=== PATIENT | female | born 1950 | race Caucasian/White ===

== ENCOUNTER 2019-01-02 12:15 | Emergency (ER) | payer OTHER ==
[~2019-01-02] VITALS: Ht 157.5 cm; Wt 70.3 kg
[~2019-01-02 12:15] MED LIST: HYDR-1421
[2019-01-02 13:07] LABS: Basophils # (auto) 0.1 uL; Basophils % (auto) 1.3 % (0.0-2.0); Eosinophils # (auto) 0.5 uL; Hematocrit 35.3 % (36.0-46.0); Hemoglobin 11.8 g/dL (12.2-16.2); Lymphocytes # (auto) 1.9 uL; Lymphocytes % (auto) 25.1 % (10.0-50.0); Mean Corpuscular Hemoglobin 27.4 pg (28.0-32.0); Mean Corpuscular Hgb Conc. 33.4 g/dL (32.0-36.0); Mean Corpuscular Volume 81.9 fL (80.0-100.0); Monocytes # (auto) 0.5 uL; Monocytes % (auto) 6.5 % (0.0-12.0); Neutrophils # (auto) 4.6 uL; Neutrophils % (auto) 60.1 % (37.0-80.0); Nucleated Red Blood Cells % 0.1 %; Platelet Count (auto) 279 10^3/uL (140-450); Red Blood Cells 4.31 10^6/uL (4.0-5.20); Red Cell Distribution Width 14.8 % (11.8-14.3); White Blood Cell 7.7 10^3/uL (4.4-10.8)
[2019-01-02 13:24] LABS: Albumin 3.4 g/dL (3.4-5.0); Calcium 8.7 mg/dL (8.5-10.1); Potassium 4.4 mmol/L (3.5-5.1)
[2019-01-02 13:27] LABS: BUN/Creatinine Ratio 41.5; Bilirubin, Total 0.2 mg/dL (0.2-1.0); Total Protein 7.2 g/dL (6.4-8.2)
[2019-01-02 13:36] LABS: INR 0.95 (0.9-1.15); Partial Thromboplastin Time 23.7 sec (23.64-32.05)
[2019-01-02] MEDS ORDERED: IOHEXOL 350 MG/ML 100ML IJ ONE (13:43)
[2019-01-02 14:25] LABS: Urine Bacteria FEW /hpf (None Seen); Urine Blood Negative /uL (Negative); Urine Mucus FEW (None Seen); Urine Specific Gravity 1.017 (1.001-1.035); Urine WBC 20 /hpf (0 - 5)
[2019-01-02] MEDS ORDERED: cefTRIAXone 1GM/50ML D5W 50 ML IV ONE (18:45)
[2019-01-02 20:45] VITALS: BP 112/73
== END 2019-01-02 20:51 | disposition home or self-care (01) ==
LOC: ER 12:19
DX: R07.89 Other chest pain (principal); R06.02 Shortness of breath; N39.0 Urinary tract infection, site not specified; N28.9 Disorder of kidney and ureter, unspecified; K72.90 Hepatic failure, unspecified without coma; R79.1 Abnormal coagulation profile; E78.5 Hyperlipidemia, unspecified; I10 Essential (primary) hypertension
CPT/HCPCS: 36415; 71045; 71275; 80053; 81001; 84443; 84484; 85025; 85379; 85610; 85730; 93005; 96365; 99284; J0696; Q9967

== ENCOUNTER 2019-04-04 14:13 | Emergency (ER) | payer OTHER ==
[~2019-04-04] VITALS: Ht 157.5 cm; Wt 70.3 kg
[2019-04-04 14:33] VITALS: BP 115/67
[2019-04-04 15:18] LABS: Basophils # (auto) 0 uL; Eosinophils # (auto) 0.4 uL; Lymphocytes % (auto) 22.9 % (10.0-50.0); Monocytes # (auto) 0.5 uL
[2019-04-04 15:20] LABS: Basophils % (auto) 0.5 % (0.0-2.0); Eosinophils % (auto) 5.3 % (0.0-7.0); Hematocrit 36.5 % (36.0-46.0); Hemoglobin 11.7 g/dL (12.2-16.2); Lymphocytes # (auto) 1.7 uL; Mean Corpuscular Hemoglobin 25.5 pg (28.0-32.0); Mean Corpuscular Hgb Conc. 32.1 g/dL (32.0-36.0); Mean Corpuscular Volume 79.7 fL (80.0-100.0); Monocytes % (auto) 7.3 % (0.0-12.0); Neutrophils # (auto) 4.7 uL; Nucleated Red Blood Cells % 0.1 %; Platelet Count (auto) 388 10^3/uL (140-450); Red Blood Cells 4.59 10^6/uL (4.0-5.20); Red Cell Distribution Width 16.5 % (11.8-14.3); White Blood Cell 7.3 10^3/uL (4.4-10.8)
[2019-04-04 15:27] LABS: Alanine Aminotransferase 169 U/L (13-56); Albumin 3.5 g/dL (3.4-5.0); Anion Gap 6 (5-15); Aspartate Aminotransferase 100 U/L (15-37); BUN/Creatinine Ratio 33.9; Blood Urea Nitrogen 21 mg/dL (7-18); Calcium 9.1 mg/dL (8.5-10.1); Carbon Dioxide 25 mmol/L (21-32); Chloride 106 mmol/L (98-107); GFR African American 123 mL/min; GFR Non-African American 102 mL/min; Glucose 93 mg/dL (74-106); Potassium 4.2 mmol/L (3.5-5.1); Sodium 137 mmol/L (136-145)
[2019-04-04 15:31] LABS: Alkaline Phosphatase 895 U/L (45-117); Bilirubin, Total 0.2 mg/dL (0.2-1.0); Total Protein 7.7 g/dL (6.4-8.2)
== END 2019-04-04 15:56 | disposition home or self-care (01) ==
LOC: ER 14:13 → EDBD 14:13 → ER 15:56
DX: R07.9 Chest pain, unspecified (principal); R06.02 Shortness of breath; Z53.21 Procedure and treatment not carried out due to patient leaving prior to being seen by health care provider
CPT/HCPCS: 36415; 71046; 80053; 84484; 85025; 93005

== ENCOUNTER → 2019-06-28 | Emergency (ER) | payer OTHER ==
[~2019-06-28] VITALS: Ht 157.5 cm; Wt 77.1 kg
[~2019-06-28] MED LIST changes: +IOHEXOL 350 MG/ML 100ML IJ ONE; +MORPHINE SULF INJ 2 MG/ML SYRINGE 1ML IV ONE; +ONDANSETRON HCL 4 MG/2 ML VIAL IV ONE; +cefTRIAXone 1GM/50ML D5W 50 ML IV ONE
[2019-06-28 15:25] LABS: Basophils # (auto) 0.1 10 ^3/uL (0-0.2); Basophils % (auto) 0.7 % (0.0-2.0); Eosinophils # (auto) 0.7 10 ^3/uL (0-0.8); Hemoglobin 12.7 g/dL (12.2-16.2); Monocytes # (auto) 0.8 10 ^3/uL (0-1.3)
[2019-06-28 15:37] LABS: Eosinophils % (auto) 5.3 % (0.0-7.0); Hematocrit 39.3 % (36.0-46.0); Lymphocytes # (auto) 2.7 10 ^3/uL (0.4-5.4); Lymphocytes % (auto) 20.5 % (10.0-50.0); Mean Corpuscular Hemoglobin 26.5 pg (28.0-32.0); Mean Corpuscular Hgb Conc. 32.3 g/dL (32.0-36.0); Mean Corpuscular Volume 82.1 fL (80.0-100.0); Monocytes % (auto) 6.4 % (0.0-12.0); Neutrophils # (auto) 8.7 10 ^3/uL (1.6-8.6); Neutrophils % (auto) 67.1 % (37.0-80.0); Nucleated Red Blood Cells % 0.1 %; Platelet Count (auto) 261 10^3/uL (140-450); Red Blood Cells 4.78 10^6/uL (4.0-5.20); Red Cell Distribution Width 18.3 % (11.8-14.3); White Blood Cell 12.9 10^3/uL (4.4-10.8)
[2019-06-28 15:45] LABS: Alanine Aminotransferase 123 U/L (13-56); Albumin 3.2 g/dL (3.4-5.0); Anion Gap 7 (5-15); Aspartate Aminotransferase 75 U/L (15-37); BUN/Creatinine Ratio 37.5; Blood Urea Nitrogen 24 mg/dL (7-18); Calcium 8.6 mg/dL (8.5-10.1); Carbon Dioxide 26 mmol/L (21-32); Chloride 104 mmol/L (98-107); GFR African American 119 mL/min; GFR Non-African American 98 mL/min; Glucose 96 mg/dL (74-106); Potassium 3.8 mmol/L (3.5-5.1); Sodium 137 mmol/L (136-145)
[2019-06-28 15:50] LABS: Alkaline Phosphatase 375 U/L (45-117); Bilirubin, Total 0.2 mg/dL (0.2-1.0); Total Protein 6.7 g/dL (6.4-8.2)
[2019-06-28 17:19] LABS: INR 0.93 (0.9-1.15); Partial Thromboplastin Time 23.5 sec (23.64-32.05)
[2019-06-28 20:03] LABS: Urine Bacteria FEW /hpf (None Seen); Urine Blood Negative /uL (Negative); Urine Mucus FEW (None Seen); Urine WBC 81 /hpf (0 - 5)
[2019-06-28 22:30] VITALS: BP 128/79
== END | disposition home or self-care (01) ==
LOC: EDUNIT# 14:24 → EDBD 14:39 → ER 14:39
DX: R07.2 Precordial pain (principal); N39.0 Urinary tract infection, site not specified; J18.9 Pneumonia, unspecified organism; R79.89 Other specified abnormal findings of blood chemistry; R79.1 Abnormal coagulation profile; I10 Essential (primary) hypertension; E78.5 Hyperlipidemia, unspecified; Z79.899 Other long term (current) drug therapy
CPT/HCPCS: 36415; 71046; 71275; 80053; 81001; 83735; 83880; 84443; 84484; 85025; 85379; 85610; 85730; 93005; 96365; 96375; 99285; J0696; J2270; J2405; Q9967

== ENCOUNTER 2019-09-01 00:18 | Emergency (ER) | payer OTHER ==
[~2019-09-01] VITALS: Ht 167.6 cm; Wt 72.6 kg
[~2019-09-01 00:18] MED LIST changes: -IOHEXOL 350 MG/ML 100ML IJ ONE; -MORPHINE SULF INJ 2 MG/ML SYRINGE 1ML IV ONE; -ONDANSETRON HCL 4 MG/2 ML VIAL IV ONE; -cefTRIAXone 1GM/50ML D5W 50 ML IV ONE
[2019-09-01 02:01] LABS: Basophils # (auto) 0.1 10 ^3/uL (0-0.2); Basophils % (auto) 0.7 % (0.0-2.0); Eosinophils # (auto) 0 10 ^3/uL (0-0.8); Eosinophils % (auto) 0.1 % (0.0-7.0); Hemoglobin 14.3 g/dL (12.2-16.2); Lymphocytes # (auto) 1.7 10 ^3/uL (0.4-5.4); Lymphocytes % (auto) 20.8 % (10.0-50.0); Mean Corpuscular Hemoglobin 28.3 pg (28.0-32.0); Mean Corpuscular Hgb Conc. 33.2 g/dL (32.0-36.0); Mean Corpuscular Volume 85.1 fL (80.0-100.0); Monocytes # (auto) 0.5 10 ^3/uL (0-1.3); Monocytes % (auto) 5.7 % (0.0-12.0); Neutrophils # (auto) 5.9 10 ^3/uL (1.6-8.6); Neutrophils % (auto) 72.7 % (37.0-80.0); Nucleated Red Blood Cells % 0.1 %; Platelet Count (auto) 342 10^3/uL (140-450); Red Blood Cells 5.05 10^6/uL (4.0-5.20); Red Cell Distribution Width 16.3 % (11.8-14.3); White Blood Cell 8.1 10^3/uL (4.4-10.8)
[2019-09-01 02:16] LABS: INR 0.95 (0.9-1.15); Partial Thromboplastin Time 25.5 sec (23.64-32.05)
[2019-09-01 02:18] LABS: Alanine Aminotransferase 107 U/L (13-56); Albumin 3.8 g/dL (3.4-5.0); Anion Gap 7 (5-15); Aspartate Aminotransferase 66 U/L (15-37); BUN/Creatinine Ratio 28.4; Blood Urea Nitrogen 21 mg/dL (7-18); Calcium 9.4 mg/dL (8.5-10.1); Carbon Dioxide 24 mmol/L (21-32); Chloride 108 mmol/L (98-107); GFR African American 100 mL/min; GFR Non-African American 83 mL/min; Glucose 117 mg/dL (74-106); Magnesium 2.3 mg/dL (1.6-2.6); Potassium 4.3 mmol/L (3.5-5.1); Sodium 139 mmol/L (136-145)
[2019-09-01 02:25] LABS: Alkaline Phosphatase 471 U/L (45-117); Bilirubin, Total 0.2 mg/dL (0.2-1.0); Total Protein 7.9 g/dL (6.4-8.2)
[2019-09-01] MEDS ORDERED: ONDANSETRON HCL 4 MG/2 ML VIAL IV ONE (08:15)
[2019-09-01] MEDS ORDERED: MORPHINE SULFATE 4 MG/ML SYR/VIAL IV ONE (08:15)
[2019-09-01] MEDS ORDERED: ASPirin 81 mg TAB PO ONE (08:15)
[2019-09-01 10:00] VITALS: BP 114/57
== END 2019-09-01 11:30 | disposition home or self-care (01) ==
LOC: EDUNIT# 00:18 → EDBD 00:18 → ER 00:18
DX: R07.89 Other chest pain (principal); E78.5 Hyperlipidemia, unspecified; I10 Essential (primary) hypertension; Z90.710 Acquired absence of both cervix and uterus
CPT/HCPCS: 36415; 71045; 80053; 83735; 83880; 84443; 84484; 85025; 85610; 85730; 93005; 96374; 96375; 99285; J2270; J2405

== ENCOUNTER 2020-09-29 12:10 | Emergency (ER) | payer OTHER ==
[~2020-09-29] VITALS: Ht 157.5 cm; Wt 63.5 kg
[2020-09-29 13:41] VITALS: BP 138/77
[2020-09-29] MEDS ORDERED: cefTRIAXone SOD 1,000 MG VL IM ONE (15:15)
== END 2020-09-29 17:14 | disposition home or self-care (01) ==
LOC: ER 12:10
DX: U07.1 COVID-19 (principal); J20.8 Acute bronchitis due to other specified organisms; I10 Essential (primary) hypertension; K21.9 Gastro-esophageal reflux disease without esophagitis; E78.5 Hyperlipidemia, unspecified; Z90.49 Acquired absence of other specified parts of digestive tract; Z90.710 Acquired absence of both cervix and uterus; Z90.89 Acquired absence of other organs
CPT/HCPCS: 36415; 71045; 87426; 96372; 99284; J0696

== ENCOUNTER 2020-10-04 11:22 | Emergency (ER) | payer OTHER ==
[~2020-10-04] VITALS: Ht 157.5 cm; Wt 65.8 kg
[2020-10-04 12:12] LABS: Basophils # (auto) 0 10 ^3/uL (0-0.2); Eosinophils # (auto) 0 10 ^3/uL (0-0.8); Eosinophils % (auto) 0.3 % (0.0-7.0); Monocytes # (auto) 0.4 10 ^3/uL (0-1.3)
[2020-10-04 12:13] LABS: Basophils % (auto) 0.6 % (0.0-2.0); Hematocrit 36.2 % (36.0-46.0); Hemoglobin 11.9 g/dL (12.2-16.2); Lymphocytes % (auto) 20.6 % (10.0-50.0); Mean Corpuscular Hemoglobin 25.6 pg (28.0-32.0); Mean Corpuscular Volume 77.5 fL (80.0-100.0); Monocytes % (auto) 7.4 % (0.0-12.0); Neutrophils # (auto) 3.5 10 ^3/uL (1.6-8.6); Neutrophils % (auto) 71.1 % (37.0-80.0); Red Blood Cells 4.67 10^6/uL (4.0-5.20); Red Cell Distribution Width 16.8 % (11.8-14.3); White Blood Cell 4.9 10^3/uL (4.4-10.8)
[2020-10-04 12:33] LABS: Albumin 3.3 g/dL (3.4-5.0); Anion Gap 9 (5-15); Blood Urea Nitrogen 19 mg/dL (7-18); Calcium 9.5 mg/dL (8.5-10.1); Carbon Dioxide 24 mmol/L (21-32); Chloride 105 mmol/L (98-107); Glucose 106 mg/dL (74-106); Potassium 3.4 mmol/L (3.5-5.1); Sodium 138 mmol/L (136-145)
[2020-10-04 12:38] LABS: Alanine Aminotransferase 48 U/L (13-56); Alkaline Phosphatase 409 U/L (45-117); Aspartate Aminotransferase 45 U/L (15-37); BUN/Creatinine Ratio 25.7; Bilirubin, Total 0.2 mg/dL (0.2-1.0); CRP High Sensitivity 0.86 mg/dL (< 0.3); GFR African American 100 mL/min; GFR Non-African American 83 mL/min; Total Protein 7.4 g/dL (6.4-8.2)
[2020-10-04] MEDS ORDERED: LOPERAMIDE HCL 2 MG CAP PO ONE (15:15)
[2020-10-04] MEDS ORDERED: SODIUM CHLORIDE 0.9% 1,000 ML IV ONE (15:15)
[2020-10-04] MEDS ORDERED: ONDANSETRON HCL 4 MG/2 ML VIAL IV ONE (15:15)
[2020-10-04 15:18] VITALS: BP 135/71
== END 2020-10-04 17:34 | disposition home or self-care (01) ==
LOC: ER 11:24
DX: U07.1 COVID-19 (principal); R11.2 Nausea with vomiting, unspecified; R19.7 Diarrhea, unspecified; K21.9 Gastro-esophageal reflux disease without esophagitis; E78.5 Hyperlipidemia, unspecified; I10 Essential (primary) hypertension; Z90.710 Acquired absence of both cervix and uterus
CPT/HCPCS: 36415; 71045; 80053; 82728; 84484; 85025; 86141; 96361; 96374; 99284; J2405; J7030

== ENCOUNTER 2020-10-06 14:48 | Emergency (ER) | payer OTHER ==
[~2020-10-06] VITALS: Ht 162.6 cm; Wt 62.6 kg
[2020-10-06 16:00] LABS: Basophils # (auto) 0 10 ^3/uL (0-0.2); Basophils % (auto) 0.6 % (0.0-2.0); Eosinophils # (auto) 0 10 ^3/uL (0-0.8); Hematocrit 33.4 % (36.0-46.0); Hemoglobin 11.3 g/dL (12.2-16.2); Lymphocytes # (auto) 0.7 10 ^3/uL (0.4-5.4); Lymphocytes % (auto) 20.9 % (10.0-50.0); Mean Corpuscular Hemoglobin 25.8 pg (28.0-32.0); Mean Corpuscular Hgb Conc. 33.8 g/dL (32.0-36.0); Mean Corpuscular Volume 76.5 fL (80.0-100.0); Monocytes # (auto) 0.3 10 ^3/uL (0-1.3); Monocytes % (auto) 8.6 % (0.0-12.0); Neutrophils # (auto) 2.4 10 ^3/uL (1.6-8.6); Neutrophils % (auto) 69.9 % (37.0-80.0); Red Blood Cells 4.37 10^6/uL (4.0-5.20); Red Cell Distribution Width 16.7 % (11.8-14.3); White Blood Cell 3.4 10^3/uL (4.4-10.8)
[2020-10-06 16:25] LABS: Albumin 2.7 g/dL (3.4-5.0); Amylase 30 U/L (25-115); Anion Gap 10 (5-15); Blood Urea Nitrogen 7 mg/dL (7-18); Calcium 7.9 mg/dL (8.5-10.1); Carbon Dioxide 21 mmol/L (21-32); Chloride 104 mmol/L (98-107); Glucose 88 mg/dL (74-106); Lipase 95 U/L (73-393); Sodium 135 mmol/L (136-145)
[2020-10-06 16:29] LABS: Alanine Aminotransferase 32 U/L (13-56); Alkaline Phosphatase 336 U/L (45-117); Aspartate Aminotransferase 44 U/L (15-37); BUN/Creatinine Ratio 14.6; Bilirubin, Total 0.3 mg/dL (0.2-1.0); GFR African American 165 mL/min; GFR Non-African American 136 mL/min; Total Protein 6.4 g/dL (6.4-8.2)
[2020-10-06] MEDS ORDERED: ASCORBIC ACID 500 MG TAB PO ONE (16:30)
[2020-10-06] MEDS ORDERED: DexAMETHasone SOD PHOS 10MG/1ML VIAL INJ IV ONE (16:30)
[2020-10-06] MEDS ORDERED: ZINC SULFATE 220mg CAP or TAB PO ONE (16:30)
[2020-10-06] MEDS ORDERED: cefTRIAXone 1GM/50ML D5W 50 ML IV ONE (16:30)
[2020-10-06] MEDS ORDERED: SODIUM CHLORIDE 0.9% 500 ML IVB ONE (16:30)
[2020-10-06] MEDS ORDERED: CHOLECALCIFEROL (VITD3) 2,000 UNIT CAP/TAB PO ONE (16:30)
[2020-10-06] MEDS ORDERED: SODIUM CHLORIDE 0.9% 1,000 ML IV ONE (16:30)
[2020-10-06] MEDS ORDERED: METOCLOPRAMIDE HCL 5MG/ml INJ 2ml VIAL IV ONE (16:30)
[2020-10-06] MEDS ORDERED: AZITHROMYCIN 500MG/ 250ML 250 ML IV ONE (16:30)
[2020-10-06] MEDS ORDERED: MORPHINE SULFATE INJECTION 2 MG/ML SYRG IV ONE (16:45)
[2020-10-06 17:05] LABS: Potassium 2.7 mmol/L (3.5-5.1)
[2020-10-06 17:10] LABS: INR 0.99 (0.9-1.15); Partial Thromboplastin Time 24.7 sec (23.6-33.0)
[2020-10-06] MEDS ORDERED: POTASSIUM EFFERVESENT TAB 25 MEQ PO ONE (17:15)
[2020-10-06 18:47] LABS: Urine Bacteria NONE SEEN /hpf (None Seen); Urine Blood Negative /uL (Negative); Urine Mucus FEW (None Seen); Urine WBC <1 /hpf (0 - 5)
[2020-10-07] MEDS ORDERED: LOPERAMIDE 1 mg/7.5ml ORAL soln PO ONE (01:00)
[2020-10-07] MEDS ORDERED: LOPERAMIDE HCL 2 MG CAP PO ONE (01:15)
[2020-10-07 09:45] VITALS: BP 134/76
== END 2020-10-07 10:20 | disposition home or self-care (01) ==
LOC: ER 14:48 → EDBD 14:48 → ER 10-07 10:20
DX: U07.1 COVID-19 (principal); J12.82 Pneumonia due to coronavirus disease 2019; K52.9 Noninfective gastroenteritis and colitis, unspecified; J18.9 Pneumonia, unspecified organism; E46 Unspecified protein-calorie malnutrition; I10 Essential (primary) hypertension; E78.5 Hyperlipidemia, unspecified; Z90.710 Acquired absence of both cervix and uterus; Z90.89 Acquired absence of other organs
CPT/HCPCS: 36415; 71045; 74176; 80053; 81001; 82150; 83605; 83690; 83735; 84443; 84484; 85025; 85610; 85730; 87040; 87426; 93005; 96365; 96366; 96368; 96375; 99285; J0456; J0696; J1100; J2270; J2765

== ENCOUNTER 2020-10-27 13:16 | Emergency (ER) | payer OTHER ==
[~2020-10-27] VITALS: Ht 157.5 cm; Wt 65.8 kg
[2020-10-27 13:45] LABS: Basophils # (auto) 0.2 10 ^3/uL (0-0.2); Eosinophils # (auto) 0.2 10 ^3/uL (0-0.8); Hemoglobin 12.6 g/dL (12.2-16.2); Monocytes # (auto) 0.6 10 ^3/uL (0-1.3); Monocytes % (auto) 7.3 % (0.0-12.0)
[2020-10-27 13:47] LABS: Basophils % (auto) 2.4 % (0.0-2.0); Eosinophils % (auto) 2.9 % (0.0-7.0); Hematocrit 39.1 % (36.0-46.0); Lymphocytes # (auto) 2.1 10 ^3/uL (0.4-5.4); Lymphocytes % (auto) 25.6 % (10.0-50.0); Mean Corpuscular Hemoglobin 25.7 pg (28.0-32.0); Mean Corpuscular Hgb Conc. 32.3 g/dL (32.0-36.0); Mean Corpuscular Volume 79.7 fL (80.0-100.0); Neutrophils # (auto) 5.1 10 ^3/uL (1.6-8.6); Neutrophils % (auto) 61.8 % (37.0-80.0); Red Blood Cells 4.91 10^6/uL (4.0-5.20); Red Cell Distribution Width 17.9 % (11.8-14.3); White Blood Cell 8.3 10^3/uL (4.4-10.8)
[2020-10-27 14:05] LABS: Albumin 3.3 g/dL (3.4-5.0); Blood Urea Nitrogen 29 mg/dL (7-18); Calcium 9.7 mg/dL (8.5-10.1); Chloride 106 mmol/L (98-107); Glucose 106 mg/dL (74-106); Potassium 4.1 mmol/L (3.5-5.1); Sodium 139 mmol/L (136-145)
[2020-10-27 14:13] LABS: Alanine Aminotransferase 102 U/L (13-56); Alkaline Phosphatase 471 U/L (45-117); Anion Gap 9 (5-15); Aspartate Aminotransferase 70 U/L (15-37); BUN/Creatinine Ratio 40.8; Bilirubin, Total 0.3 mg/dL (0.2-1.0); Carbon Dioxide 24 mmol/L (21-32); GFR African American 105 mL/min; GFR Non-African American 87 mL/min; Total Protein 7.8 g/dL (6.4-8.2)
[2020-10-27] MEDS ORDERED: cefTRIAXone 1GM/50ML D5W 50 ML IV ONE (17:15)
[2020-10-27] MEDS ORDERED: CHOLECALCIFEROL (VITD3) 2,000 UNIT CAP/TAB PO ONE (17:15)
[2020-10-27] MEDS ORDERED: ZINC SULFATE 220mg CAP or TAB PO ONE (17:15)
[2020-10-27] MEDS ORDERED: AZITHROMYCIN 500MG/ 250ML 250 ML IV ONE (17:15)
[2020-10-27] MEDS ORDERED: ASCORBIC ACID 500 MG TAB PO ONE (17:15)
[2020-10-27] MEDS ORDERED: IOHEXOL 350 MG/ML 100ML IJ ONE (17:29)
[2020-10-27 17:50] LABS: Urine Bacteria NONE SEEN /hpf (None Seen); Urine Blood Negative /uL (Negative); Urine Mucus FEW (None Seen); Urine Specific Gravity 1.024 (1.001-1.035); Urine WBC 3 /hpf (0 - 5)
[2020-10-27 21:20] VITALS: BP 152/70
== END 2020-10-27 21:34 | disposition still patient (30) ==
LOC: ER 13:17
DX: J18.9 Pneumonia, unspecified organism (principal); N39.0 Urinary tract infection, site not specified; M35.00 Sjogren syndrome, unspecified; R74.8 Abnormal levels of other serum enzymes; R79.1 Abnormal coagulation profile; E46 Unspecified protein-calorie malnutrition; K21.9 Gastro-esophageal reflux disease without esophagitis; I10 Essential (primary) hypertension; E78.5 Hyperlipidemia, unspecified; Z68.26 Body mass index [BMI] 26.0-26.9, adult; Z90.49 Acquired absence of other specified parts of digestive tract; Z90.710 Acquired absence of both cervix and uterus; Z90.89 Acquired absence of other organs; Z20.822 Contact with and (suspected) exposure to COVID-19
CPT/HCPCS: 36415; 71046; 71275; 80053; 81001; 82728; 83605; 84484; 85025; 85379; 87040; 87426; 93005; 96365; 96366; 96368; 99285; J0456; J0696; Q9967

== ENCOUNTER 2020-11-16 15:37 | Emergency (ER) | payer OTHER ==
[~2020-11-16] VITALS: Ht 157.5 cm; Wt 65.8 kg
[2020-11-16 20:43] VITALS: BP 121/69
[2020-11-16] MEDS ORDERED: FLUORESCEIN SOD OPTH TEST STRIP EACHEYE ONE (21:00)
[2020-11-16] MEDS ORDERED: TETRACAINE HCL 0.5% OPTH(EYE) SOLN 4ML EACHEYE ONE (21:00)
== END 2020-11-16 23:32 | disposition home or self-care (01) ==
LOC: ER 15:37
DX: H33.8 Other retinal detachments (principal); H57.11 Ocular pain, right eye; H54.61 Unqualified visual loss, right eye, normal vision left eye; I10 Essential (primary) hypertension; E78.5 Hyperlipidemia, unspecified; K21.9 Gastro-esophageal reflux disease without esophagitis; Z90.49 Acquired absence of other specified parts of digestive tract; Z90.710 Acquired absence of both cervix and uterus; Z90.89 Acquired absence of other organs; Z79.899 Other long term (current) drug therapy
CPT/HCPCS: 70450; 93005

== ENCOUNTER 2020-11-26 15:48 | Emergency (ER) | payer OTHER ==
[~2020-11-26] VITALS: Ht 157.5 cm; Wt 65.8 kg
[2020-11-26 17:08] LABS: Basophils # (auto) 0.1 10 ^3/uL (0-0.2); Eosinophils # (auto) 0.4 10 ^3/uL (0-0.8); Neutrophils # (auto) 4.8 10 ^3/uL (1.6-8.6)
[2020-11-26 17:10] LABS: Hematocrit 35.1 % (36.0-46.0); Hemoglobin 11.3 g/dL (12.2-16.2); Lymphocytes # (auto) 1.8 10 ^3/uL (0.4-5.4); Lymphocytes % (auto) 24.7 % (10.0-50.0); Mean Corpuscular Hemoglobin 25.2 pg (28.0-32.0); Mean Corpuscular Hgb Conc. 32.3 g/dL (32.0-36.0); Mean Corpuscular Volume 78.2 fL (80.0-100.0); Monocytes # (auto) 0.4 10 ^3/uL (0-1.3); Monocytes % (auto) 5.4 % (0.0-12.0); Neutrophils % (auto) 63.9 % (37.0-80.0); Nucleated Red Blood Cells % 0.1 %; Red Blood Cells 4.49 10^6/uL (4.0-5.20); Red Cell Distribution Width 17.5 % (11.8-14.3); White Blood Cell 7.5 10^3/uL (4.4-10.8)
[2020-11-26 17:26] LABS: Albumin 3.6 g/dL (3.4-5.0); Anion Gap 5 (5-15); Blood Urea Nitrogen 16 mg/dL (7-18); Calcium 9.4 mg/dL (8.5-10.1); Carbon Dioxide 26 mmol/L (21-32); Chloride 110 mmol/L (98-107); Glucose 144 mg/dL (74-106); Magnesium 2.3 mg/dL (1.6-2.6); Sodium 141 mmol/L (136-145)
[2020-11-26 17:32] LABS: Alanine Aminotransferase 47 U/L (13-56); Alkaline Phosphatase 471 U/L (45-117); Aspartate Aminotransferase 34 U/L (15-37); BUN/Creatinine Ratio 19.5; Bilirubin, Total 0.2 mg/dL (0.2-1.0); CRP High Sensitivity 0.38 mg/dL (< 0.3); GFR African American 89 mL/min; GFR Non-African American 73 mL/min; Total Protein 7.4 g/dL (6.4-8.2)
[2020-11-26] MEDS ORDERED: IOHEXOL 350 MG/ML 100ML IJ ONE (18:35)
[2020-11-26] MEDS ORDERED: POTASSIUM CHL 20 Meq TABLET PO ONE (18:45)
[2020-11-26 19:15] LABS: Urine Bacteria NONE SEEN /hpf (None Seen); Urine Blood Negative /uL (Negative); Urine Hyaline Cast MANY /lpf (0 - 2); Urine Mucus FEW (None Seen); Urine Specific Gravity 1.029 (1.001-1.035); Urine WBC 21 /hpf (0 - 5)
[2020-11-26 23:10] VITALS: BP 108/52
== END 2020-11-26 23:15 | disposition home or self-care (01) ==
LOC: ER 15:48
DX: N39.0 Urinary tract infection, site not specified (principal); R05.9 Cough, unspecified; R07.89 Other chest pain; I10 Essential (primary) hypertension; E78.5 Hyperlipidemia, unspecified; K21.9 Gastro-esophageal reflux disease without esophagitis; Z87.891 Personal history of nicotine dependence; Z90.49 Acquired absence of other specified parts of digestive tract; Z90.710 Acquired absence of both cervix and uterus; Z90.89 Acquired absence of other organs; Z79.899 Other long term (current) drug therapy
CPT/HCPCS: 36415; 71045; 71275; 80053; 81001; 82728; 83735; 83880; 84484; 85025; 85379; 86141; 99285; Q9967; 93005

== ENCOUNTER 2021-01-17 15:30 | Emergency (ER) | payer OTHER ==
[~2021-01-17] VITALS: Ht 157.5 cm; Wt 65.8 kg
[2021-01-17 18:28] LABS: Basophils # (auto) 0.1 10 ^3/uL (0-0.2); Mean Corpuscular Hgb Conc. 31.5 g/dL (32.0-36.0); Monocytes # (auto) 0.6 10 ^3/uL (0-1.3); Neutrophils % (auto) 66.7 % (37.0-80.0)
[2021-01-17 18:29] LABS: Basophils % (auto) 0.6 % (0.0-2.0); Eosinophils # (auto) 0.4 10 ^3/uL (0-0.8); Eosinophils % (auto) 3.6 % (0.0-7.0); Hematocrit 35.4 % (36.0-46.0); Hemoglobin 11.2 g/dL (12.2-16.2); Lymphocytes # (auto) 2.4 10 ^3/uL (0.4-5.4); Lymphocytes % (auto) 23.2 % (10.0-50.0); Mean Corpuscular Volume 76.1 fL (80.0-100.0); Monocytes % (auto) 5.9 % (0.0-12.0); Neutrophils # (auto) 6.8 10 ^3/uL (1.6-8.6); Red Blood Cells 4.65 10^6/uL (4.0-5.20); Red Cell Distribution Width 17.3 % (11.8-14.3); White Blood Cell 10.1 10^3/uL (4.4-10.8)
[2021-01-17 18:47] LABS: Albumin 3.8 g/dL (3.4-5.0); Calcium 9.6 mg/dL (8.5-10.1); Potassium 4.3 mmol/L (3.5-5.1)
[2021-01-17 18:54] LABS: BUN/Creatinine Ratio 42.9; Bilirubin, Total 0.2 mg/dL (0.2-1.0); Total Protein 7.5 g/dL (6.4-8.2)
[2021-01-17 21:10] VITALS: BP 129/78
== END 2021-01-17 22:58 | disposition home or self-care (01) ==
LOC: ER 15:30
DX: R06.02 Shortness of breath (principal); R05.9 Cough, unspecified; K21.9 Gastro-esophageal reflux disease without esophagitis; E78.5 Hyperlipidemia, unspecified; I10 Essential (primary) hypertension; Z90.710 Acquired absence of both cervix and uterus; Z87.891 Personal history of nicotine dependence
CPT/HCPCS: 36415; 71046; 80053; 84484; 85025; 93005

== ENCOUNTER 2021-02-20 09:30 | Emergency (ER) | payer OTHER ==
[~2021-02-20] VITALS: Ht 157.5 cm; Wt 65.8 kg
[2021-02-20 09:55] VITALS: BP 132/57
[2021-02-20] MEDS ORDERED: BENZ100C19 PO (11:10)
[2021-02-20] MEDS ORDERED: DOXY-286 PO (11:10)
== END 2021-02-20 12:32 | disposition home or self-care (01) ==
LOC: ER 09:30
DX: J06.9 Acute upper respiratory infection, unspecified (principal); I10 Essential (primary) hypertension; E78.5 Hyperlipidemia, unspecified; K21.9 Gastro-esophageal reflux disease without esophagitis; G89.29 Other chronic pain; M54.9 Dorsalgia, unspecified; M54.2 Cervicalgia; Z90.49 Acquired absence of other specified parts of digestive tract; Z90.89 Acquired absence of other organs; Z90.710 Acquired absence of both cervix and uterus; Z87.891 Personal history of nicotine dependence; Z79.2 Long term (current) use of antibiotics; Z79.899 Other long term (current) drug therapy; Z20.822 Contact with and (suspected) exposure to COVID-19
CPT/HCPCS: 36415; 71045; 87426; 93005

== ENCOUNTER 2021-02-26 14:46 | Emergency (ER) | payer OTHER ==
[~2021-02-26] VITALS: Ht 157.5 cm; Wt 57.6 kg
[~2021-02-26 14:46] MED LIST changes: +BENZ100C19 PO; +DOXY-286 PO
[2021-02-26 14:48] VITALS: BP 154/72
== END 2021-02-26 15:53 | disposition left against medical advice (07) ==
LOC: ER 14:50
DX: F32.9 Major depressive disorder, single episode, unspecified (principal); Z53.21 Procedure and treatment not carried out due to patient leaving prior to being seen by health care provider

== ENCOUNTER 2021-03-21 19:04 | Emergency (ER) | payer OTHER ==
[~2021-03-21] VITALS: Ht 152.4 cm; Wt 61.2 kg
[2021-03-21] MEDS ORDERED: NITROGLYCERIN 0.4 MG SL TAB SL ONE (20:33)
[2021-03-21 20:58] LABS: Eosinophils # (auto) 0.3 10 ^3/uL (0-0.8); Monocytes # (auto) 0.5 10 ^3/uL (0-1.3); Monocytes % (auto) 7.5 % (0.0-12.0); Nucleated Red Blood Cells % 0.1 %
[2021-03-21 20:59] LABS: Basophils # (auto) 0 10 ^3/uL (0-0.2); Basophils % (auto) 0.6 % (0.0-2.0); Hemoglobin 9.4 g/dL (12.2-16.2); Lymphocytes # (auto) 1.4 10 ^3/uL (0.4-5.4); Lymphocytes % (auto) 21.3 % (10.0-50.0); Mean Corpuscular Hgb Conc. 31.4 g/dL (32.0-36.0); Mean Corpuscular Volume 73.4 fL (80.0-100.0); Neutrophils # (auto) 4.5 10 ^3/uL (1.6-8.6); Neutrophils % (auto) 66.6 % (37.0-80.0); Red Blood Cells 4.09 10^6/uL (4.0-5.20); Red Cell Distribution Width 17.8 % (11.8-14.3); White Blood Cell 6.7 10^3/uL (4.4-10.8)
[2021-03-21 21:12] LABS: Albumin 3.1 g/dL (3.4-5.0); Calcium 8.5 mg/dL (8.5-10.1); Potassium 3.9 mmol/L (3.5-5.1)
[2021-03-21 21:23] LABS: BUN/Creatinine Ratio 41.5; Bilirubin, Total 0.2 mg/dL (0.2-1.0); Total Protein 6.1 g/dL (6.4-8.2)
[2021-03-22] MEDS ORDERED: ACETAMINOPHEN 325 MG TAB PO ONE (00:15)
[2021-03-22 00:27] VITALS: BP 130/80
[2021-03-22] MEDS ORDERED: NITROGLYCERIN 0.4 MG SL TAB SL ONE (10:00)
== END 2021-03-22 01:39 | disposition home or self-care (01) ==
LOC: EDBD 19:04 → ER 19:04
DX: R07.89 Other chest pain (principal); K21.9 Gastro-esophageal reflux disease without esophagitis; E78.5 Hyperlipidemia, unspecified; Z90.710 Acquired absence of both cervix and uterus; Z87.891 Personal history of nicotine dependence
CPT/HCPCS: 36415; 71045; 80053; 83880; 84484; 85025; 93005

== ENCOUNTER 2021-04-07 16:30 | Emergency (ER) | payer OTHER ==
[~2021-04-07] VITALS: Ht 157.5 cm; Wt 63.5 kg
[2021-04-07 16:42] VITALS: BP 137/89
[2021-04-07] MEDS ORDERED: ASPirin 81 mg TAB PO ONE (17:00)
[2021-04-07] MEDS ORDERED: ONDANSETRON HCL 4 MG/2 ML VIAL ONE (17:19)
[2021-04-07] MEDS ORDERED: ONDANSETRON HCL 4 MG/2 ML VIAL IV ONE (17:30)
[2021-04-07 17:58] LABS: Basophils # (auto) 0 10 ^3/uL (0-0.2); Eosinophils # (auto) 0 10 ^3/uL (0-0.8); Hemoglobin 10.2 g/dL (12.2-16.2); Neutrophils # (auto) 7.9 10 ^3/uL (1.6-8.6); Red Cell Distribution Width 17.5 % (11.8-14.3)
[2021-04-07 18:00] LABS: Basophils % (auto) 0.2 % (0.0-2.0); Eosinophils % (auto) 0.3 % (0.0-7.0); Hematocrit 31.4 % (36.0-46.0); Lymphocytes % (auto) 10.8 % (10.0-50.0); Mean Corpuscular Hemoglobin 23.3 pg (28.0-32.0); Mean Corpuscular Hgb Conc. 32.3 g/dL (32.0-36.0); Mean Corpuscular Volume 72.1 fL (80.0-100.0); Monocytes # (auto) 0.6 10 ^3/uL (0-1.3); Monocytes % (auto) 5.8 % (0.0-12.0); Neutrophils % (auto) 82.9 % (37.0-80.0); Red Blood Cells 4.36 10^6/uL (4.0-5.20); White Blood Cell 9.6 10^3/uL (4.4-10.8)
[2021-04-07 18:02] LABS: Albumin 3.3 g/dL (3.4-5.0); Potassium 3.4 mmol/L (3.5-5.1)
[2021-04-07 18:08] LABS: BUN/Creatinine Ratio 30.9; Bilirubin, Total 0.3 mg/dL (0.2-1.0); Total Protein 6.6 g/dL (6.4-8.2)
== END 2021-04-07 18:17 | disposition left against medical advice (07) ==
LOC: ER 16:30 → EDBD 16:30 → ER 18:05
DX: R07.89 Other chest pain (principal); K21.9 Gastro-esophageal reflux disease without esophagitis; E78.5 Hyperlipidemia, unspecified; Z90.710 Acquired absence of both cervix and uterus; Z87.891 Personal history of nicotine dependence
CPT/HCPCS: 36415; 71045; 80053; 83880; 84484; 85025; 93005; 96374; 99285; J2405

== ENCOUNTER 2021-04-13 19:42 | Emergency (ER) | payer OTHER ==
[~2021-04-13] VITALS: Ht 167.6 cm; Wt 72.6 kg
[2021-04-13 22:33] LABS: Basophils # (auto) 0 10 ^3/uL (0-0.2); Eosinophils # (auto) 0 10 ^3/uL (0-0.8); Hematocrit 28.8 % (36.0-46.0); Hemoglobin 9.5 g/dL (12.2-16.2); Monocytes # (auto) 0.9 10 ^3/uL (0-1.3)
[2021-04-13 22:35] LABS: Basophils % (auto) 0.2 % (0.0-2.0); Lymphocytes # (auto) 1.3 10 ^3/uL (0.4-5.4); Lymphocytes % (auto) 9.8 % (10.0-50.0); Mean Corpuscular Hemoglobin 23.3 pg (28.0-32.0); Mean Corpuscular Hgb Conc. 32.9 g/dL (32.0-36.0); Mean Corpuscular Volume 70.8 fL (80.0-100.0); Neutrophils # (auto) 10.8 10 ^3/uL (1.6-8.6); Red Blood Cells 4.07 10^6/uL (4.0-5.20); Red Cell Distribution Width 17.9 % (11.8-14.3)
[2021-04-13 22:48] LABS: Alanine Aminotransferase 21 U/L (13-56); Albumin 3.3 g/dL (3.4-5.0); Anion Gap 8 (5-15); Aspartate Aminotransferase 17 U/L (15-37); BUN/Creatinine Ratio 24.1; Blood Alcohol < 3.0 mg/dL (0-5); Blood Urea Nitrogen 14 mg/dL (7-18); Calcium 9.4 mg/dL (8.5-10.1); Carbon Dioxide 24 mmol/L (21-32); Chloride 104 mmol/L (98-107); GFR African American 133 mL/min; GFR Non-African American 110 mL/min; Glucose 100 mg/dL (74-106); Potassium 3.4 mmol/L (3.5-5.1); Sodium 136 mmol/L (136-145)
[2021-04-13 22:50] LABS: Alkaline Phosphatase 262 U/L (45-117); Bilirubin, Total 0.4 mg/dL (0.2-1.0); Total Protein 6.3 g/dL (6.4-8.2)
[2021-04-14 00:06] LABS: Urine Bacteria MANY /hpf (None Seen); Urine Blood 1+ /uL (Negative); Urine Hyaline Cast MOD /lpf (0 - 2); Urine Mucus FEW (None Seen); Urine Specific Gravity 1.012 (1.001-1.035); Urine WBC 318 /hpf (0 - 5); Urine WBC Clumps PRESENT /hpf (None Seen)
[2021-04-14 00:19] LABS: Alcohol, Urine < 3.0 mg/dL (0-10); Amphetamine Screen, Urine NEGATIVE (NEGATIVE); Barbiturate Scree,Urine NEGATIVE (NEGATIVE); Benzodiazephine Screen, Urine NEGATIVE (NEGATIVE); Cannabinoid Screen, Urine NEGATIVE (NEGATIVE); Opiate Scree,Urine NEGATIVE (NEGATIVE); Phencyclidine Screen, Urine NEGATIVE (NEGATIVE)
[2021-04-14 00:31] LABS: Cocaine Screen, Urine NEGATIVE (NEGATIVE)
[2021-04-14] MEDS ORDERED: cefTRIAXone SOD 1,000 MG VL IV ONE (01:00)
[2021-04-14] MEDS ORDERED: SODIUM CHLORIDE 0.9% 1,000 ML IV ONE (01:00)
[2021-04-14] MEDS ORDERED: cefTRIAXone 1GM/50ML D5W 50 ML IV ONE ×2 (01:22→01:30)
[2021-04-14 04:58] VITALS: BP 140/69
== END 2021-04-14 05:32 | disposition short-term general hospital (02) ==
LOC: EDSEX 19:42 → EDBD 19:42 → ER 19:42
DX: R41.82 Altered mental status, unspecified (principal); N12 Tubulo-interstitial nephritis, not specified as acute or chronic; K21.9 Gastro-esophageal reflux disease without esophagitis; E78.5 Hyperlipidemia, unspecified; Z87.891 Personal history of nicotine dependence; Z90.710 Acquired absence of both cervix and uterus; Z20.822 Contact with and (suspected) exposure to COVID-19
CPT/HCPCS: 36415; 70450; 71045; 80053; 80307; 80320; 81001; 82962; 84484; 85025; 87426; 93005; 96361; 96365; 99285; J0696; J7030

== ENCOUNTER 2021-05-03 15:37 | Emergency (ER) | payer OTHER ==
[~2021-05-03] VITALS: Ht 157.5 cm; Wt 64.9 kg
[2021-05-03 16:44] LABS: Basophils # (auto) 0.1 10 ^3/uL (0-0.2); Eosinophils # (auto) 0.1 10 ^3/uL (0-0.8); Monocytes # (auto) 0.5 10 ^3/uL (0-1.3); Monocytes % (auto) 6.1 % (0.0-12.0); Red Blood Cells 4.48 10^6/uL (4.0-5.20)
[2021-05-03 16:46] LABS: Basophils % (auto) 1.1 % (0.0-2.0); Eosinophils % (auto) 0.8 % (0.0-7.0); Hematocrit 32.1 % (36.0-46.0); Hemoglobin 10.4 g/dL (12.2-16.2); Lymphocytes # (auto) 1.8 10 ^3/uL (0.4-5.4); Lymphocytes % (auto) 22.4 % (10.0-50.0); Mean Corpuscular Hemoglobin 23.3 pg (28.0-32.0); Mean Corpuscular Hgb Conc. 32.5 g/dL (32.0-36.0); Mean Corpuscular Volume 71.7 fL (80.0-100.0); Neutrophils # (auto) 5.7 10 ^3/uL (1.6-8.6); Neutrophils % (auto) 69.6 % (37.0-80.0); Nucleated Red Blood Cells % 0.1 %; Red Cell Distribution Width 18.2 % (11.8-14.3); White Blood Cell 8.2 10^3/uL (4.4-10.8)
[2021-05-03 17:01] LABS: Acetaminophen 3.1 ug/mL (10-30); Albumin 3.5 g/dL (3.4-5.0); BUN/Creatinine Ratio 28.8; Calcium 9.5 mg/dL (8.5-10.1); Potassium 3.8 mmol/L (3.5-5.1); Salicylate 10.8 mg/dL (2.8-20.0)
[2021-05-03 17:06] LABS: Bilirubin, Total 0.2 mg/dL (0.2-1.0); Total Protein 6.9 g/dL (6.4-8.2)
[2021-05-03] MEDS ORDERED: ACETAMINOPHEN 500 MG TAB PO ONE (21:30)
[2021-05-03 21:45] VITALS: BP 116/74
== END 2021-05-03 21:57 | disposition home or self-care (01) ==
LOC: ER 15:37 → EDBD 15:37 → ER 21:57
DX: G47.00 Insomnia, unspecified (principal); K21.9 Gastro-esophageal reflux disease without esophagitis; E78.5 Hyperlipidemia, unspecified; F31.9 Bipolar disorder, unspecified; Z90.710 Acquired absence of both cervix and uterus; Z87.891 Personal history of nicotine dependence
CPT/HCPCS: 36415; 80053; 80329; 84484; 85025; 93005

== ENCOUNTER 2021-07-08 12:45 | Emergency (ER) | payer OTHER ==
[~2021-07-08] VITALS: Ht 152.4 cm; Wt 65.8 kg
== END 2021-07-08 13:52 | disposition left against medical advice (07) ==
LOC: ER 12:45
DX: R51.9 Headache, unspecified (principal); R11.2 Nausea with vomiting, unspecified; Z53.21 Procedure and treatment not carried out due to patient leaving prior to being seen by health care provider

== ENCOUNTER → 2021-07-10 | Emergency (ER) | payer OTHER | END | disposition left against medical advice (07) | LOC: EDUNIT# 18:31 → EDBD 18:32 → ER 18:41 | DX: R51.9 Headache, unspecified (principal); R94.31 Abnormal electrocardiogram [ECG] [EKG]; Z53.21 Procedure and treatment not carried out due to patient leaving prior to being seen by health care provider | CPT/HCPCS: 93005 ==

== ENCOUNTER 2021-07-14 16:31 | Emergency (ER) | payer OTHER ==
[~2021-07-14] VITALS: Ht 157.5 cm; Wt 68.0 kg
[2021-07-14 16:36] VITALS: BP 156/82
[2021-07-14 17:37] LABS: Albumin 3.7 g/dL (3.4-5.0); Calcium 9.2 mg/dL (8.5-10.1); Potassium 3.2 mmol/L (3.5-5.1)
[2021-07-14 17:38] LABS: Mean Corpuscular Hgb Conc. 32.5 g/dL (32.0-36.0); White Blood Cell 7.8 10^3/uL (4.4-10.8)
[2021-07-14 17:41] LABS: BUN/Creatinine Ratio 36.5; Basophils # (auto) 0.1 10 ^3/uL (0-0.2); Basophils % (auto) 1.1 % (0.0-2.0); Bilirubin, Total 0.3 mg/dL (0.2-1.0); Eosinophils # (auto) 0.3 10 ^3/uL (0-0.8); Eosinophils % (auto) 3.9 % (0.0-7.0); Hematocrit 26.2 % (36.0-46.0); Hemoglobin 8.5 g/dL (12.2-16.2); Lymphocytes # (auto) 1.6 10 ^3/uL (0.4-5.4); Lymphocytes % (auto) 20.2 % (10.0-50.0); Mean Corpuscular Hemoglobin 23.6 pg (28.0-32.0); Mean Corpuscular Volume 72.5 fL (80.0-100.0); Monocytes # (auto) 0.6 10 ^3/uL (0-1.3); Monocytes % (auto) 7.3 % (0.0-12.0); Neutrophils # (auto) 5.3 10 ^3/uL (1.6-8.6); Neutrophils % (auto) 67.5 % (37.0-80.0); Nucleated Red Blood Cells % 0.1 %; Red Blood Cells 3.61 10^6/uL (4.0-5.20); Red Cell Distribution Width 19.2 % (11.8-14.3); Total Protein 6.8 g/dL (6.4-8.2)
[2021-07-14] MEDS ORDERED: ACETAMINOPHEN 325 MG TAB PO ONE (17:45)
[2021-07-16] MEDS ORDERED: TRAM50TA2 PO (16:23)
== END 2021-07-15 04:01 | disposition left against medical advice (07) ==
LOC: EDBD 16:31 → ER 16:31
DX: S60.222A Contusion of left hand, initial encounter (principal); D64.9 Anemia, unspecified; K21.9 Gastro-esophageal reflux disease without esophagitis; E78.5 Hyperlipidemia, unspecified; Z90.710 Acquired absence of both cervix and uterus; Z87.891 Personal history of nicotine dependence; Y04.2XXA Assault by strike against or bumped into by another person, initial encounter; Y93.89 Activity, other specified; Y92.89 Other specified places as the place of occurrence of the external cause; Y99.8 Other external cause status
CPT/HCPCS: 36415; 73130; 80053; 85025

== ENCOUNTER 2021-07-16 12:57 | Emergency (ER) | payer OTHER, MEDICARE ==
[~2021-07-16] VITALS: Ht 162.6 cm; Wt 65.8 kg
[2021-07-16] MEDS ORDERED: HYDROcodone-ACET 5/325MG TAB PO ONE (13:15)
[2021-07-16] MEDS ORDERED: TRAM50TA2 PO (16:23)
[2021-07-16 16:34] VITALS: BP 130/76
== END 2021-07-16 16:33 | disposition home or self-care (01) ==
LOC: EDBD 12:57 → EDUNIT# 12:57 → ER 12:57
DX: S67.22XA Crushing injury of left hand, initial encounter (principal); M19.042 Primary osteoarthritis, left hand; W23.0XXA Caught, crushed, jammed, or pinched between moving objects, initial encounter; Y93.89 Activity, other specified; Y92.89 Other specified places as the place of occurrence of the external cause; Y99.8 Other external cause status
CPT/HCPCS: 73120

== ENCOUNTER 2021-08-03 06:47 | Emergency (ER) | payer OTHER, MEDICARE ==
[~2021-08-03] VITALS: Ht 162.6 cm; Wt 63.5 kg
[~2021-08-03 06:47] MED LIST changes: +TRAM50TA2 PO
[2021-08-03 07:18] LABS: Basophils # (auto) 0 10 ^3/uL (0-0.2); Basophils % (auto) 0.5 % (0.0-2.0); Eosinophils # (auto) 0.3 10 ^3/uL (0-0.8); Eosinophils % (auto) 3.7 % (0.0-7.0); Hematocrit 26.2 % (36.0-46.0); Hemoglobin 8.3 g/dL (12.2-16.2); Lymphocytes # (auto) 1.5 10 ^3/uL (0.4-5.4); Lymphocytes % (auto) 17.6 % (10.0-50.0); Mean Corpuscular Hgb Conc. 31.8 g/dL (32.0-36.0); Monocytes # (auto) 0.4 10 ^3/uL (0-1.3); Monocytes % (auto) 4.5 % (0.0-12.0); Neutrophils # (auto) 6.4 10 ^3/uL (1.6-8.6); Neutrophils % (auto) 73.7 % (37.0-80.0); Red Blood Cells 3.62 10^6/uL (4.0-5.20); White Blood Cell 8.7 10^3/uL (4.4-10.8)
[2021-08-03 07:19] LABS: Mean Corpuscular Volume 72.3 fL (80.0-100.0); Red Cell Distribution Width 18.6 % (11.8-14.3)
[2021-08-03] MEDS ORDERED: ONDANSETRON HCL 4 MG/2 ML VIAL IV ONE (07:30)
[2021-08-03] MEDS ORDERED: FAMOTIDINE (10MG/ML) 2ML VL IV ONE (07:30)
[2021-08-03] MEDS ORDERED: LACTATED RINGER'S 1,000 ML IV ONE (07:30)
[2021-08-03] MEDS ORDERED: LIDOCAINE VISCOUS 2% 15ML UD PO ONE (07:30)
[2021-08-03] MEDS ORDERED: ALUM & MAG HYDROX-SIMETH LIQ(MAALOX) 30 ML PO ONE (07:30)
[2021-08-03 07:35] LABS: Albumin 3.4 g/dL (3.4-5.0); BUN/Creatinine Ratio 35.7; Calcium 9.4 mg/dL (8.5-10.1); Potassium 3.3 mmol/L (3.5-5.1)
[2021-08-03 07:38] LABS: Bilirubin, Total 0.4 mg/dL (0.2-1.0); Total Protein 6.9 g/dL (6.4-8.2)
[2021-08-03] MEDS ORDERED: POTASSIUM CHL 20 Meq TABLET PO ONE (09:45)
[2021-08-03 10:46] LABS: Urine Bacteria FEW /hpf (None Seen); Urine Blood Negative /uL (Negative); Urine Hyaline Cast FEW /lpf (0 - 2); Urine Mucus FEW (None Seen); Urine Specific Gravity 1.025 (1.001-1.035); Urine WBC 22 /hpf (0 - 5)
[2021-08-03] MEDS ORDERED: SODIUM CHLORIDE 0.9% 1,000 ML IV ONE (11:30)
[2021-08-03] MEDS ORDERED: METOCLOPRAMIDE HCL 5MG/ml INJ 2ml VIAL IV ONE (11:30)
[2021-08-03] MEDS ORDERED: ACETAMINOPHEN 325 MG TAB PO ONE (13:15)
[2021-08-03] MEDS ORDERED: ONDA-144 PO (13:22)
[2021-08-03] MEDS ORDERED: CIPR500T4 PO (13:22)
[2021-08-03 13:34] VITALS: BP 112/84
== END 2021-08-03 13:42 | disposition home or self-care (01) ==
LOC: EDBD 06:47 → ER 06:47
DX: K52.9 Noninfective gastroenteritis and colitis, unspecified (principal); E86.0 Dehydration; N39.0 Urinary tract infection, site not specified; I10 Essential (primary) hypertension; E78.5 Hyperlipidemia, unspecified; Z90.89 Acquired absence of other organs; Z90.710 Acquired absence of both cervix and uterus; Z20.822 Contact with and (suspected) exposure to COVID-19
CPT/HCPCS: 36415; 71045; 74176; 80053; 81001; 83605; 83690; 84484; 85025; 87426; 87804; 93005; 96361; 96374; 96375; 99285; J2405; J2765; J3490; J7030

== ENCOUNTER 2021-12-28 08:54 | Emergency (ER) | payer MEDICARE, OTHER ==
[~2021-12-28] VITALS: Ht 160 cm; Wt 69.0 kg
[~2021-12-28 08:54] MED LIST changes: +CIPR500T4 PO; +ONDA-144 PO
[2021-12-28 09:53] VITALS: BP 117/65
== END 2021-12-28 14:25 | disposition left against medical advice (07) ==
LOC: ER 08:54 → EDBD 08:54 → ER 14:25
DX: F41.9 Anxiety disorder, unspecified (principal); I10 Essential (primary) hypertension; E78.5 Hyperlipidemia, unspecified; K21.9 Gastro-esophageal reflux disease without esophagitis; Z90.49 Acquired absence of other specified parts of digestive tract; Z90.710 Acquired absence of both cervix and uterus; Z90.89 Acquired absence of other organs; Z87.891 Personal history of nicotine dependence
CPT/HCPCS: 93005

== ENCOUNTER 2023-03-01 11:59 | Emergency (ER) | payer OTHER ==
[~2023-03-01] VITALS: Ht 162.6 cm; Wt 86.0 kg
[2023-03-01 12:53] VITALS: BP 120/59; PULSE 93; RESP 18; TEMP 97.6; O2SAT 98
[2023-03-01] MEDS ORDERED: HYDROcodone-ACET 5/325MG TAB PO ONE (13:30)
[2023-03-01 13:54] LABS: Basophils # (auto) 0.1 10 ^3/uL (0-0.2); Eosinophils # (auto) 0.2 10 ^3/uL (0-0.8); Eosinophils % (auto) 3.2 % (0.0-7.0); Hemoglobin 10.8 g/dL (12.2-16.2); Lymphocytes # (auto) 1.4 10 ^3/uL (0.4-5.4)
[2023-03-01 13:55] LABS: Hematocrit 34.5 % (36.0-46.0); Lymphocytes % (auto) 20.6 % (10.0-50.0); Mean Corpuscular Hemoglobin 23.2 pg (28.0-32.0); Mean Corpuscular Hgb Conc. 31.2 g/dL (32.0-36.0); Mean Corpuscular Volume 74.3 fL (80.0-100.0); Monocytes # (auto) 0.5 10 ^3/uL (0-1.3); Monocytes % (auto) 6.9 % (0.0-12.0); Neutrophils # (auto) 4.8 10 ^3/uL (1.6-8.6); Neutrophils % (auto) 68.3 % (37.0-80.0); Red Blood Cells 4.65 10^6/uL (4.0-5.20); Red Cell Distribution Width 16.6 % (11.8-14.3)
[2023-03-01 14:23] LABS: Alanine Aminotransferase 59 U/L (7-40); Albumin 4.3 g/dL (3.2-4.8); Alkaline Phosphatase 547 U/L (46-116); Anion Gap 7 (5-15); Aspartate Aminotransferase 49 U/L (13-40); BUN/Creatinine Ratio 23.2 (10.0-20.0); Blood Urea Nitrogen 13 mg/dL (9-23); Calcium 9.7 mg/dL (8.5-10.1); Carbon Dioxide 22 mmol/L (20-30); Chloride 109 mmol/L (98-107); Glucose 113 mg/dL (74-106); Potassium 3.6 mmol/L (3.5-5.1); Sodium 138 mmol/L (136-145)
[2023-03-01 14:24] LABS: Bilirubin, Total 0.2 mg/dL (0.2-1.0); Total Protein 6.5 g/dL (5.7-8.2)
[2023-03-01] MEDS ORDERED: TRAM50TA2 PO (14:38)
[2023-03-01] MEDS ORDERED: PRED20TA2 PO (14:38)
== END 2023-03-01 14:49 | disposition home or self-care (01) ==
LOC: EDBD 11:59 → ER 11:59 → EDUNIT# 11:59 → ER 14:49
DX: M50.10 Cervical disc disorder with radiculopathy, unspecified cervical region (principal); K21.9 Gastro-esophageal reflux disease without esophagitis; E78.5 Hyperlipidemia, unspecified; I10 Essential (primary) hypertension; D64.9 Anemia, unspecified; Z90.710 Acquired absence of both cervix and uterus; Z87.891 Personal history of nicotine dependence
CPT/HCPCS: 36415; 72040; 80053; 85025; 93005

== ENCOUNTER 2023-03-04 01:40 | Emergency (ER) | payer OTHER ==
[~2023-03-04] VITALS: Ht 165.1 cm; Wt 68.1 kg
[~2023-03-04 01:40] MED LIST changes: +PRED20TA2 PO
[2023-03-04] MEDS ORDERED: MORPHINE SULFATE INJ 2 MG/ml SYRG IM ONE (02:15)
[2023-03-04] MEDS ORDERED: ONDANSETRON ODT 4 MG TAB PO ONE (02:15)
[2023-03-04 03:08] VITALS: TEMP 97.8; O2SAT 99
[2023-03-04 03:33] VITALS: BP 139/68; PULSE 96; RESP 20
[2023-03-04] MEDS ORDERED: TRAM50TA2 PO (04:00)
== END 2023-03-04 04:27 | disposition home or self-care (01) ==
LOC: EDSEX 01:40 → EDBD 01:40 → ER 01:40
DX: S39.012A Strain of muscle, fascia and tendon of lower back, initial encounter (principal); S29.012A Strain of muscle and tendon of back wall of thorax, initial encounter; M50.30 Other cervical disc degeneration, unspecified cervical region; M51.34 Other intervertebral disc degeneration, thoracic region; M51.36 Other intervertebral disc degeneration, lumbar region; M62.838 Other muscle spasm; R07.81 Pleurodynia; I10 Essential (primary) hypertension; E78.5 Hyperlipidemia, unspecified; K21.9 Gastro-esophageal reflux disease without esophagitis; F41.9 Anxiety disorder, unspecified; F20.9 Schizophrenia, unspecified; Z86.2 Personal history of diseases of the blood and blood-forming organs and certain disorders involving the immune mechanism; Z98.890 Other specified postprocedural states; Z87.891 Personal history of nicotine dependence; Z79.899 Other long term (current) drug therapy; W18.39XA Other fall on same level, initial encounter; Y93.89 Activity, other specified; Y92.89 Other specified places as the place of occurrence of the external cause; Y99.8 Other external cause status
CPT/HCPCS: 71111; 72040; 72070; 72100; 93005; 96372; 99284; J2270; Q0162

== ENCOUNTER 2023-05-30 15:12 | Inpatient (IN) | payer OTHER ==
[~2023-05-30] VITALS: Ht 157.5 cm; Wt 66.0 kg
[2023-05-30] MEDS: MORPHINE SULFATE INJ 2 MG/ml SYRG IM ONE
[2023-05-30] MEDS: ONDANSETRON ODT 4 MG TAB PO ONE
[2023-05-30] MEDS: ONDANSETRON HCL 4 MG/2 ML VIAL IV ONE (15:30)
[2023-05-30] MEDS: MORPHINE SULFATE INJ 2 MG/ml SYRG IV ONE (15:30)
[2023-05-30 15:57] LABS: Basophils # (auto) 0.1 10 ^3/uL (0-0.2); Basophils % (auto) 1.1 % (0.0-2.0); Eosinophils # (auto) 0.2 10 ^3/uL (0-0.8); Lymphocytes # (auto) 1.7 10 ^3/uL (0.4-5.4); Mean Corpuscular Hgb Conc. 30.4 g/dL (32.0-36.0); Monocytes # (auto) 0.4 10 ^3/uL (0-1.3); Neutrophils # (auto) 3.5 10 ^3/uL (1.6-8.6); White Blood Cell 5.9 10^3/uL (4.4-10.8)
[2023-05-30 15:59] LABS: Eosinophils % (auto) 3.6 % (0.0-7.0); Hematocrit 29.1 % (36.0-46.0); Hemoglobin 8.8 g/dL (12.2-16.2); Lymphocytes % (auto) 29.1 % (10.0-50.0); Mean Corpuscular Hemoglobin 21.2 pg (28.0-32.0); Monocytes % (auto) 6.7 % (0.0-12.0); Neutrophils % (auto) 59.5 % (37.0-80.0); Red Blood Cells 4.16 10^6/uL (4.0-5.20); Red Cell Distribution Width 17.6 % (11.8-14.3)
[2023-05-30 16:19] LABS: Alanine Aminotransferase 44 U/L (7-40); Alkaline Phosphatase 398 U/L (46-116); Calcium 9.3 mg/dL (8.5-10.1)
[2023-05-30 16:20] LABS: Carbon Dioxide 27 mmol/L (20-30); Chloride 109 mmol/L (98-107); Glucose 126 mg/dL (74-106); Sodium 141 mmol/L (136-145)
[2023-05-30 16:21] LABS: Albumin 4.1 g/dL (3.2-4.8); Anion Gap 5 (5-15); Aspartate Aminotransferase 34 U/L (13-40); BUN/Creatinine Ratio 35.1 (10.0-20.0); Bilirubin, Total 0.2 mg/dL (0.2-1.0); Blood Urea Nitrogen 26 mg/dL (9-23); Total Protein 5.9 g/dL (5.7-8.2)
[2023-05-30] MEDS: IOHEXOL 350 MG/ML 100ML IJ ONE (16:32)
[2023-05-30 16:43] LABS: INR 0.93 (0.9-1.15); Partial Thromboplastin Time 25.6 SEC (24.5-34.5); Prothrombin Time 9.8 sec (9.3-11.8)
[2023-05-30] MEDS: levoFLOXacin 750MG 150 ML IV ONE (19:45)
[2023-05-31] MEDS: ONDANSETRON ODT 4 MG TAB PO ONE (03:12)
[2023-05-31] MEDS: MORPHINE SULFATE INJ 2 MG/ml SYRG IM ONE (03:12)
[2023-05-31] MEDS ORDERED: NITROGLYCERIN 0.4 MG SL TAB SL PRN (05:00)
[2023-05-31] MEDS ORDERED: MORPHINE SULFATE INJ 2 MG/ml SYRG IV PRN (05:00)
[2023-05-31] MEDS ORDERED: ONDANSETRON HCL 4 MG/2 ML VIAL IV PRN (05:00)
[2023-05-31 07:56] LABS: Urine Bacteria None Seen /hpf (None Seen)
[2023-05-31 08:13] LABS: Urine Blood Negative /uL (Negative); Urine Clarity Clear (Clear); Urine Color Yellow (Yellow); Urine Mucus FEW (None Seen); Urine Protein, UAD 1+ (Negative); Urine Urobilinogen Normal (Negative); Urine WBC 9 /hpf (0 - 5); Urine pH 5.5 (5.0-9.0)
[2023-05-31 10:55] LABS: Amphetamine Screen, Urine Pos (NEGATIVE); Barbiturate Scree,Urine Neg (NEGATIVE); Benzodiazephine Screen, Urine Neg (NEGATIVE); Cocaine Screen, Urine Neg (NEGATIVE)
[2023-05-31 10:56] LABS: Cannabinoid Screen, Urine Neg (NEGATIVE); Opiate Scree,Urine Pos (NEGATIVE); Phencyclidine Screen, Urine Neg (NEGATIVE)
[2023-05-31] MEDS: LISINOPRIL 5 MG TAB PO SCH (11:44)
[2023-05-31] MEDS: ASPirin 81 mg TAB PO SCH (11:44)
[2023-05-31 11:45] LABS: Basophils % (auto) 0.7 % (0.0-2.0); Eosinophils % (auto) 2.1 % (0.0-7.0); Hemoglobin 8.5 g/dL (12.2-16.2); Lymphocytes # (auto) 1.2 10 ^3/uL (0.4-5.4); Monocytes # (auto) 0.5 10 ^3/uL (0-1.3); Neutrophils # (auto) 5.3 10 ^3/uL (1.6-8.6); White Blood Cell 7.2 10^3/uL (4.4-10.8)
[2023-05-31 11:47] VITALS: BP 121/65; PULSE 95; RESP 16; TEMP 97.7; O2SAT 98
[2023-05-31 11:47] LABS: Basophils # (auto) 0.1 10 ^3/uL (0-0.2); Eosinophils # (auto) 0.2 10 ^3/uL (0-0.8); Hematocrit 26.9 % (36.0-46.0); Lymphocytes % (auto) 16.4 % (10.0-50.0); Mean Corpuscular Hemoglobin 22.1 pg (28.0-32.0); Mean Corpuscular Hgb Conc. 31.6 g/dL (32.0-36.0); Monocytes % (auto) 6.7 % (0.0-12.0); Neutrophils % (auto) 74.1 % (37.0-80.0); Nucleated Red Blood Cells % 0.1 %; Red Blood Cells 3.84 10^6/uL (4.0-5.20); Red Cell Distribution Width 17.6 % (11.8-14.3)
[2023-05-31 11:54] LABS: Chloride 107 mmol/L (98-107); Potassium 4.2 mmol/L (3.5-5.1); Sodium 138 mmol/L (136-145)
[2023-05-31 11:55] LABS: Anion Gap 5 (5-15); Calcium 9.2 mg/dL (8.5-10.1); Carbon Dioxide 26 mmol/L (20-30)
[2023-05-31 12:00] LABS: BUN/Creatinine Ratio 32.8 (10.0-20.0); Blood Urea Nitrogen 20 mg/dL (9-23); Glucose 111 mg/dL (74-106)
[2023-05-31 12:10] LABS: Magnesium 1.8 mg/dL (1.6-2.6)
== END 2023-05-31 12:12 | disposition left against medical advice (07) | DRG 313 ==
LOC: EDBD 15:12 → ER 15:12 → TELE 05-31 05:00
PROVIDERS: ADMIT Nurse Practitioner; ATTEND Internal Medicine
DX: R07.89 Other chest pain (principal); F41.9 Anxiety disorder, unspecified; K21.9 Gastro-esophageal reflux disease without esophagitis; E78.5 Hyperlipidemia, unspecified; I10 Essential (primary) hypertension; F20.9 Schizophrenia, unspecified; K74.60 Unspecified cirrhosis of liver; D64.9 Anemia, unspecified; G20.A1 Parkinson's disease without dyskinesia, without mention of fluctuations; M81.0 Age-related osteoporosis without current pathological fracture; M06.9 Rheumatoid arthritis, unspecified; Z53.29 Procedure and treatment not carried out because of patient's decision for other reasons; G25.81 Restless legs syndrome; F31.9 Bipolar disorder, unspecified; Z90.710 Acquired absence of both cervix and uterus; Z90.49 Acquired absence of other specified parts of digestive tract; Z87.891 Personal history of nicotine dependence; Z82.49 Family history of ischemic heart disease and other diseases of the circulatory system; F15.129 Other stimulant abuse with intoxication, unspecified
CPT/HCPCS: 36415; 71045; 71275; 80048; 80053; 80061; 80307; 81001; 83036; 83605; 83735; 83880; 84443; 84484; 85025; 85379; 85610; 85730; 87040; 93005; 96365; 96372; G0378; J1956; Q0162

== ENCOUNTER 2023-07-13 05:38 | Emergency (ER) | payer OTHER ==
[~2023-07-13] VITALS: Ht 157.5 cm; Wt 70.0 kg
[2023-07-13 05:55] VITALS: BP 132/65; PULSE 108; RESP 18; O2SAT 95
[2023-07-13] MEDS ORDERED: ONDANSETRON HCL 4 MG/2 ML VIAL IV ONE (07:00)
[2023-07-13] MEDS ORDERED: PANTOPRAZOLE 40 MG/10 ML VIAL INJ IV ONE (07:00)
== END 2023-07-13 08:04 | disposition left against medical advice (07) ==
LOC: EDBD 05:38 → ER 05:38
DX: R10.2 Pelvic and perineal pain (principal); I10 Essential (primary) hypertension; E78.5 Hyperlipidemia, unspecified; K21.9 Gastro-esophageal reflux disease without esophagitis; F41.9 Anxiety disorder, unspecified; F15.90 Other stimulant use, unspecified, uncomplicated; Z86.2 Personal history of diseases of the blood and blood-forming organs and certain disorders involving the immune mechanism; Z98.890 Other specified postprocedural states; Z87.891 Personal history of nicotine dependence; Z79.899 Other long term (current) drug therapy
CPT/HCPCS: 93005

== ENCOUNTER 2023-07-13 10:13 | Emergency (ER) | payer OTHER ==
[~2023-07-13] VITALS: Ht 167.6 cm; Wt 65.0 kg
[2023-07-13] MEDS ORDERED: IPRATROPIUM BROM 0.5 MG/2.5ML INH SOL HHN ONE (10:30)
[2023-07-13] MEDS ORDERED: ALBUTEROL SULF 2.5 MG/0.5ML(0.5%) NEB SOLN HHN ONE (10:30)
[2023-07-13 10:58] LABS: Eosinophils # (auto) 0 10 ^3/uL (0-0.8); Monocytes # (auto) 0.9 10 ^3/uL (0-1.3); Neutrophils # (auto) 13.4 10 ^3/uL (1.6-8.6)
[2023-07-13 11:02] LABS: Alanine Aminotransferase 126 U/L (7-40); Alkaline Phosphatase 447 U/L (46-116); Anion Gap 7 (5-15); Aspartate Aminotransferase 233 U/L (13-40); BUN/Creatinine Ratio 49.4 (10.0-20.0); Basophils # (auto) 0 10 ^3/uL (0-0.2); Basophils % (auto) 0.2 % (0.0-2.0); Blood Urea Nitrogen 39 mg/dL (9-23); Calcium 9.4 mg/dL (8.5-10.1); Carbon Dioxide 21 mmol/L (20-30); Chloride 110 mmol/L (98-107); Eosinophils % (auto) 0.1 % (0.0-7.0); Glucose 109 mg/dL (74-106); Hematocrit 28.4 % (36.0-46.0); Hemoglobin 8.8 g/dL (12.2-16.2); Lymphocytes # (auto) 1.2 10 ^3/uL (0.4-5.4); Lymphocytes % (auto) 7.8 % (10.0-50.0); Mean Corpuscular Volume 70.8 fL (80.0-100.0); Neutrophils % (auto) 85.9 % (37.0-80.0); Potassium 3.2 mmol/L (3.5-5.1); Red Blood Cells 4.02 10^6/uL (4.0-5.20); Sodium 138 mmol/L (136-145); White Blood Cell 15.6 10^3/uL (4.4-10.8)
[2023-07-13 11:03] LABS: Albumin 4.3 g/dL (3.2-4.8); Bilirubin, Total 0.5 mg/dL (0.2-1.0); Total Protein 6.5 g/dL (5.7-8.2)
[2023-07-13 11:11] LABS: Red Cell Distribution Width 21.3 % (11.8-14.3)
[2023-07-13 16:33] LABS: Urine Bacteria MOD /hpf (None Seen); Urine Blood 1+ /uL (Negative); Urine Clarity Turbid (Clear); Urine Color Light-Yellow (Yellow); Urine Hyaline Cast FEW /lpf (0 - 2); Urine Mucus FEW (None Seen); Urine Protein, UAD 1+ (Negative); Urine Specific Gravity 1.022 (1.001-1.035); Urine Urobilinogen Normal (Negative); Urine WBC 6 /hpf (0 - 5)
[2023-07-13 16:51] LABS: COVID19 ANTIGEN SOFIA FIA NEGATIVE (NEGATIVE)
[2023-07-13] MEDS: cefTRIAXone 1GM/50ML D5W 50 ML IV ONE (21:30)
[2023-07-13] MEDS: SODIUM CHLORIDE 0.9% 500 ML IV ONE (21:30)
[2023-07-13 21:44] VITALS: PULSE 91; RESP 20; O2SAT 96
[2023-07-13 22:42] VITALS: BP 131/65; PULSE 94; RESP 18; TEMP 98.4; O2SAT 96
== END 2023-07-13 14:08 | disposition short-term general hospital (02) ==
LOC: EDUNIT# 10:13 → ER 10:13 → EDBD 10:13 → ER 14:08
DX: N39.0 Urinary tract infection, site not specified (principal); R53.1 Weakness; K21.9 Gastro-esophageal reflux disease without esophagitis; E78.5 Hyperlipidemia, unspecified; I10 Essential (primary) hypertension; F15.10 Other stimulant abuse, uncomplicated; Z90.710 Acquired absence of both cervix and uterus; Z87.891 Personal history of nicotine dependence; Z20.822 Contact with and (suspected) exposure to COVID-19
CPT/HCPCS: 36415; 70450; 74176; 80053; 81001; 82140; 83605; 85025; 87040; 87426; 96365; 99285; J0696; J7040

== ENCOUNTER 2023-10-17 14:12 | Emergency (ER) | payer OTHER ==
[~2023-10-17] VITALS: Ht 165.1 cm; Wt 64.0 kg
[2023-10-17] MEDS: IPRATROPIUM BROM 0.5 MG/2.5ML INH SOL NEB ONE (15:18)
[2023-10-17] MEDS: ALBUTEROL SULF 2.5 MG/0.5ML(0.5%) NEB SOLN NEB ONE (15:18)
[2023-10-17 15:28] VITALS: PULSE 96; RESP 15; O2SAT 96
[2023-10-17 15:31] LABS: Basophils # (auto) 0 10 ^3/uL (0-0.2); Basophils % (auto) 0.4 % (0.0-2.0); Eosinophils # (auto) 0.2 10 ^3/uL (0-0.8); Eosinophils % (auto) 2.2 % (0.0-7.0); Hematocrit 31.8 % (36.0-46.0); Hemoglobin 10.6 g/dL (12.2-16.2); Lymphocytes # (auto) 1.1 10 ^3/uL (0.4-5.4); Lymphocytes % (auto) 14.9 % (10.0-50.0); Mean Corpuscular Hemoglobin 25.8 pg (28.0-32.0); Mean Corpuscular Hgb Conc. 33.3 g/dL (32.0-36.0); Mean Corpuscular Volume 77.6 fL (80.0-100.0); Monocytes # (auto) 0.5 10 ^3/uL (0-1.3); Monocytes % (auto) 6.1 % (0.0-12.0); Neutrophils # (auto) 5.8 10 ^3/uL (1.6-8.6); Neutrophils % (auto) 76.4 % (37.0-80.0); Platelet Count (auto) 264 10^3/uL (140-450); Red Blood Cells 4.09 10^6/uL (4.0-5.20); Red Cell Distribution Width 20.2 % (11.8-14.3); White Blood Cell 7.6 10^3/uL (4.4-10.8)
[2023-10-17] MEDS: predniSONE 20 MG TAB PO ONE (15:40)
[2023-10-17 15:50] LABS: Alanine Aminotransferase 54 U/L (7-40); Albumin 4.3 g/dL (3.2-4.8); Alkaline Phosphatase 265 U/L (46-116); Anion Gap 7 (5-15); Aspartate Aminotransferase 42 U/L (13-40); BUN/Creatinine Ratio 26.1 (10.0-20.0); Blood Urea Nitrogen 18 mg/dL (9-23); Calcium 9.4 mg/dL (8.7-10.4); Carbon Dioxide 27 mmol/L (20-30); Chloride 109 mmol/L (98-107); Glucose 104 mg/dL (74-106); Potassium 2.7 mmol/L (3.5-5.1); Sodium 143 mmol/L (136-145)
[2023-10-17 15:51] LABS: Bilirubin, Total 0.2 mg/dL (0.2-1.0); Total Protein 5.9 g/dL (5.7-8.2)
[2023-10-17] MEDS: POTASSIUM CHL 20 Meq TABLET PO ONE (16:02)
[2023-10-17 16:25] LABS: COVID19 ANTIGEN SOFIA FIA NEGATIVE (NEGATIVE)
[2023-10-17] MEDS: cefTRIAXone 1GM/50ML D5W 50 ML IV ONE (16:52)
[2023-10-17] MEDS: AZITHROMYCIN 500MG/ 250ML 250 ML IV ONE (17:13)
[2023-10-17] MEDS: IOHEXOL 350 MG/ML 100ML IJ ONE (17:35)
[2023-10-17 19:35] VITALS: PULSE 96; RESP 15; O2SAT 96
[2023-10-17 20:58] VITALS: BP 128/53; PULSE 96; RESP 16; TEMP 97.9; O2SAT 95
== END 2023-10-17 20:58 | disposition short-term general hospital (02) ==
LOC: EDBD 14:12 → ER 14:12
DX: J96.90 Respiratory failure, unspecified, unspecified whether with hypoxia or hypercapnia (principal); J18.9 Pneumonia, unspecified organism; E87.6 Hypokalemia; J44.1 Chronic obstructive pulmonary disease with (acute) exacerbation; K21.9 Gastro-esophageal reflux disease without esophagitis; E78.5 Hyperlipidemia, unspecified; I10 Essential (primary) hypertension; Z90.710 Acquired absence of both cervix and uterus; Z87.891 Personal history of nicotine dependence; Z20.822 Contact with and (suspected) exposure to COVID-19
CPT/HCPCS: 36415; 71045; 71275; 80053; 83605; 83880; 84484; 85025; 87040; 87426; 93005; 94640; 96365; 96366; 96368; 99291; J0456; J0696; J7512; Q9967